=== PATIENT | female | born 1975 | race African-American/Black ===

== ENCOUNTER 2020-01-06 10:00 | Outpatient (CLI) | payer OTHER | END 2020-01-06 23:31 | disposition home or self-care (01) | LOC: MAMMO 10:00 | DX: Z12.31 Encounter for screening mammogram for malignant neoplasm of breast (principal) ==

== ENCOUNTER 2022-03-07 09:28 | Outpatient (CLI) | payer OTHER | END 2022-03-07 18:58 | disposition home or self-care (01) | LOC: MAMMO 09:28 | PROVIDERS: ATTEND Internal Medicine | DX: Z12.31 Encounter for screening mammogram for malignant neoplasm of breast (principal) ==